=== PATIENT | female | born 2005 | race Caucasian/White ===

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

== ENCOUNTER 2023-01-30 19:57 | Emergency (ER) | payer BC ==
[~2023-01-30 19:57] MED LIST changes: +Iopamidol 370 76% 200 ML VIAL ONE; -Sodium Chloride 0.9% 1,000 ML BAG ONE
[2023-01-30] MEDS ORDERED: Lactated Ringer's 1,000 ML ONE (20:49)
[2023-01-30] MEDS ORDERED: Acetaminophen 500 MG TAB ONE (20:49)
[2023-01-30 20:51] LABS: #Basophils 0.1 thou/uL (0.0-0.2); #Eosinphils 0.1 thou/uL (0.0-0.7); #Lymphocytes 3.3 thou/uL (1.20-3.40); #Monocytes 0.7 thou/uL (0.11-0.59); #Neutrophils 5.1 thou/uL (1.40-6.50); %Basophils 0.8 % (0.0-1.0); %Eosinophils 0.6 % (0.0-10.0); %Monocytes 7.6 % (0.0-4.0); %Neutrophils 55.1 % (31.0-61.0); Hemoglobin 13.3 g/dL (12.0-16.0); Mean Corpuscular HGB CONC 34.2 g/dL (32.0-36.0); Mean Corpuscular Hemoglobin 26.7 pg (25.0-35.0); Mean Platelet Volume 8.9 fL (7.4-10.4); Platelet Count 320 10x3/uL (130-400); RBC Distribution Width 12.5 % (11.5-14.5); Red Blood Cell (RBC) Count 4.98 mill/uL (4.00-5.20); White Blood Cell (WBC) Count 9.3 10x3/uL (4.8-10.8)
[2023-01-30 20:51] LABS: Bilirubin Negative (Negative); Blood, Urine Negative (Negative); Clarity Clear (Clear); Glucose, Urine (Dipstick) Negative (Negative); Ketone, Urine Negative (Negative); Leukocyte Trace (Negative); Nitrite Negative (Negative); Pregnancy Test - Urine (BHCG) POSITIVE (Negative); Pregu Control Background? CLEAR/WHITE (CLR/WHITE); Pregu Control Bar Appear? YES (CONTROL BAR); Protein, Urine (Dipstick) Negative (Neg-Trace); Urobilinogen 0.2 mg/dL (Less than 2)
[2023-01-30] MEDS ORDERED: Sucralfate 1 GM TAB ONE (20:51)
[2023-01-30 21:01] LABS: Bacteria/HPF 1+ HPF (None Seen); RBC/HPF None Seen HPF (0-3); Squamous Epithelial 0-3 HPF (0-3); WBC/HPF 0-3 HPF (0-3)
[2023-01-30 21:11] LABS: ALT (SGPT) 19 U/L (8-55); AST (SGOT) 12 U/L (5-30); Albumin 4.1 g/dL (3.5-5.0); Alkaline Phosphatase 81 U/L (40-100); Anion Gap 14 mmol/L (10-20); BUN (Urea Nitrogen) 10 mg/dL (8.4-21.0); Bilirubin, Total 0.3 mg/dL (0.2-1.2); Calc. Creatinine Clearance 0 mL/min (70-130); Calcium 9.8 mg/dL (7.8-10.44); Carbon Dioxide 20 mmol/L (22-29); Chloride 107 mmol/L (98-107); Estimated GFR 119; Globulin 3.5 g/dL (2.4-3.5); Glucose 91 mg/dL (70-105); Lipase 20 U/L (8-78); Protein, Total 7.6 g/dL (6.0-8.3); Sodium 137 mmol/L (136-145)
[2023-01-30] MEDS ORDERED: Cephalexin 500 MG CAP ONE (22:54)
== END 2023-01-30 23:01 | disposition home or self-care (01) ==
LOC: MADERS 19:57
DX: O99.891 Other specified diseases and conditions complicating pregnancy (principal); R82.71 Bacteriuria; R10.12 Left upper quadrant pain; R11.0 Nausea; R55 Syncope and collapse; Z3A.09 9 weeks gestation of pregnancy
CPT/HCPCS: 71275; 80053; 81003; 81015; 81025; 83690; 84484; 85025; 85379; 86900; 86901; 87086; 93005; 94760; 96360; J7120

== ENCOUNTER 2023-06-16 20:39 | Emergency (ER) | payer OTHER, SELFPAY ==
[2023-06-16 21:15] LABS: Pregnancy Test - Urine (BHCG) Negative (Negative); Pregu Control Background? CLEAR/WHITE (CLR/WHITE); Pregu Control Bar Appear? YES (CONTROL BAR); Specific Gravity 1.027 (1.002-1.036)
== END 2023-06-16 21:31 | disposition home or self-care (01) ==
LOC: MADERS 20:39
DX: J06.9 Acute upper respiratory infection, unspecified (principal); N92.6 Irregular menstruation, unspecified
CPT/HCPCS: 81025; 99283

== ENCOUNTER 2023-10-13 22:06 | Emergency (ER) | payer BC, OTHER ==
[2023-10-13 22:57] LABS: #Basophils 0.1 thou/uL (0.0-0.2); #Eosinphils 0.1 thou/uL (0.0-0.7); #Monocytes 0.6 thou/uL (0.11-0.59); #Neutrophils 6.4 thou/uL (1.40-6.50); %Basophils 0.8 % (0.0-1.0); %Eosinophils 0.7 % (0.0-10.0); %Lymphocytes 35.8 % (28.0-48.0); %Monocytes 5.4 % (0.0-4.0); %Neutrophils 57.2 % (31.0-61.0); Hematocrit 38.8 % (36.0-47.0); Hemoglobin 12.4 g/dL (12.0-16.0); Mean Corpuscular HGB CONC 31.9 g/dL (32.0-36.0); Mean Corpuscular Hemoglobin 25.8 pg (25.0-35.0); Mean Corpuscular Volume 80.7 fl (78.0-98.0); Mean Platelet Volume 8.4 fL (7.4-10.4); Platelet Count 303 10x3/uL (130-400); RBC Distribution Width 12.8 % (11.5-14.5); Red Blood Cell (RBC) Count 4.81 mill/uL (4.00-5.20); White Blood Cell (WBC) Count 11.2 10x3/uL (4.8-10.8)
[2023-10-13] MEDS ORDERED: Ibuprofen 800 MG TAB ONE (23:06)
[2023-10-13] MEDS ORDERED: Acetaminophen 500 MG TAB ONE (23:07)
[2023-10-13 23:15] LABS: Pregnancy Test - Urine (BHCG) Negative (Negative); Pregu Control Background? CLEAR/WHITE (CLR/WHITE); Pregu Control Bar Appear? YES (CONTROL BAR); Specific Gravity 1.025 (1.002-1.036)
[2023-10-13 23:17] LABS: ALT (SGPT) 14 U/L (8-55); AST (SGOT) 18 U/L (5-34); Albumin 4.1 g/dL (3.5-5.0); Alkaline Phosphatase 81 U/L (40-100); Anion Gap 16 mmol/L (10-20); BUN (Urea Nitrogen) 12 mg/dL (7.0-18.7); Bilirubin, Total 0.3 mg/dL (0.2-1.2); Calc. Creatinine Clearance 0 mL/min (70-130); Calcium 9.3 mg/dL (7.8-10.44); Carbon Dioxide 20 mmol/L (22-29); Chloride 107 mmol/L (98-107); Estimated GFR 123; Globulin 3.6 g/dL (2.4-3.5); Glucose 101 mg/dL (70-105); Potassium 3.7 mmol/L (3.5-5.1); Protein, Total 7.7 g/dL (6.0-8.3); Sodium 139 mmol/L (136-145)
[2023-10-13 23:24] LABS: Troponin I Less than 0.010 ng/mL (< 0.028)
== END 2023-10-13 23:45 | disposition home or self-care (01) ==
LOC: MADERS 22:06
DX: R55 Syncope and collapse (principal)
CPT/HCPCS: 36415; 80053; 81025; 84484; 85025; 93005

== ENCOUNTER 2023-10-25 15:01 | Emergency (ER) | payer BC, OTHER ==
[2023-10-25 16:11] LABS: #Basophils 0.1 thou/uL (0.0-0.2); #Eosinphils 0.1 thou/uL (0.0-0.7); #Lymphocytes 3.1 thou/uL (1.20-3.40); #Monocytes 0.5 thou/uL (0.11-0.59); #Neutrophils 3.4 thou/uL (1.40-6.50); %Basophils 1.2 % (0.0-1.0); %Eosinophils 1.8 % (0.0-10.0); %Lymphocytes 42.5 % (28.0-48.0); %Monocytes 7.2 % (0.0-4.0); %Neutrophils 47.2 % (31.0-61.0); Hematocrit 38.3 % (36.0-47.0); Hemoglobin 12.2 g/dL (12.0-16.0); Mean Corpuscular HGB CONC 31.9 g/dL (32.0-36.0); Mean Corpuscular Hemoglobin 25.5 pg (25.0-35.0); Mean Corpuscular Volume 80.1 fl (78.0-98.0); Mean Platelet Volume 8.4 fL (7.4-10.4); Platelet Count 318 10x3/uL (130-400); RBC Distribution Width 12.7 % (11.5-14.5); Red Blood Cell (RBC) Count 4.78 mill/uL (4.00-5.20); White Blood Cell (WBC) Count 7.3 10x3/uL (4.8-10.8)
[2023-10-25 16:26] LABS: ALT (SGPT) 15 U/L (8-55); AST (SGOT) 15 U/L (5-34); Alkaline Phosphatase 77 U/L (40-100); Anion Gap 12 mmol/L (10-20); BUN (Urea Nitrogen) 11 mg/dL (7.0-18.7); Bilirubin, Total 0.3 mg/dL (0.2-1.2); Calc. Creatinine Clearance 0 mL/min (70-130); Calcium 8.9 mg/dL (7.8-10.44); Carbon Dioxide 23 mmol/L (22-29); Chloride 109 mmol/L (98-107); Estimated GFR 111; Globulin 3.5 g/dL (2.4-3.5); Glucose 123 mg/dL (70-105); Potassium 3.8 mmol/L (3.5-5.1); Protein, Total 7.5 g/dL (6.0-8.3); Sodium 140 mmol/L (136-145)
== END 2023-10-25 17:53 | disposition home or self-care (01) ==
LOC: MADERS 15:01
DX: R55 Syncope and collapse (principal)
CPT/HCPCS: 36415; 80053; 85025; 93005